=== PATIENT | male | born 1985 | race African-American/Black ===

== ENCOUNTER 2017-04-12 16:55 | Emergency (ER) | payer OTHER ==
[~2017-04-12 16:55] MED LIST: CLARITIN10 M3 PO; DELTASONE20 MG; DELTASONE20 MG PO; HYCET 7.5 MG-3473 ML PO; HYDROCODON-ACE1 EAC7 PO; LORTAB 5-325 M1 EACH PO; NO MEDICATIONS; TOBREX3.5 GM OU; TOBREX5 ML OU
[2017-04-12 17:47] LABS: INFLUENZA A NEG (NEG); INFLUENZA B NEG (NEG)
== END 2017-04-12 18:15 | disposition home or self-care (01) ==
LOC: SED 16:55
PROVIDERS: Nurse Practitioner Family
DX: J02.9 Acute pharyngitis, unspecified (principal); J01.90 Acute sinusitis, unspecified; F17.210 Nicotine dependence, cigarettes, uncomplicated
CPT/HCPCS: 87651; 87804; 99283

== ENCOUNTER 2017-04-28 19:17 | Emergency (ER) | payer OTHER ==
[~2017-04-28] VITALS: Ht 180.3 cm; Wt 74.8 kg
--- NOTE | ~2017-04-28 | CT71 ---
[facility] A [facility] RADIOLOGY TEXT RESULTS PATIENT: JARED BENITEZ LOCATION: SED : [birth year] UNIT #: [id number] AGE: [address]: Laura Hernandez PAC SEX: M ORDER DR: [id number] [address] [address] [id number] MR#: [id number] #: [id number] NAME: JARED BENITEZ : 1985 SEX: M STUDY DATE/TIME: 04/28/2017 20:11 UNIT: SED ROOM: STUDY DESCRIPTION: CT Head Wo Contrast Attending Physician: Laura Hernandez Pa-C Ordering Physician: Laura Hernandez Pa-C Primary Care Physician: No Primary Care Physician MEDICAL IMAGING REPORT This report is preliminary unless electronic signature is present. EXAM Head CT without contrast. HISTORY Headache with nausea, pain in the eyes and pressure for the past 2 days. TECHNIQUE Axial images were obtained without contrast. This CT exam was performed with one or more of the following radiation dose reduction techniques: automatic exposure control, adjustment of mA and/or kV according to patient size, and iterative reconstruction. FINDINGS Ventricular size and configuration are normal. There is no evidence of acute infarct or hemorrhage. There are no extraaxial fluid collections. No mass lesion or mass effect is seen. There are no skull fractures. IMPRESSION Normal noncontrast head CT. Dictated by... Asael Chapman M.D. THIS IS AN ELECTRONICALLY VERIFIED REPORT Asael Chapman M.D. at 04/30/2017 7:08 AM RADHAF/kendra TD: 04/29/2017 09:34 JOB #: [id number] [facility] A [facility] RADIOLOGY TEXT RESULTS PATIENT: JARED BENITEZ LOCATION: SED : [birth year] UNIT #: [id number] AGE: [address]: Laura Hernandez PAC SEX: M ORDER DR: MEDICAL IMAGING REPORT Page 1 of 1
[2017-04-28] MEDS ORDERED: ZYRTEC10 M1 PO (19:34)
== END 2017-04-28 21:46 | disposition home or self-care (01) ==
LOC: SED 19:17
DX: R51 Headache (principal)
CPT/HCPCS: 70450; 96372; 99284; J1885

== ENCOUNTER 2017-04-29 08:29 | Emergency (ER) | payer OTHER ==
[~2017-04-29 08:29] MED LIST changes: +ZYRTEC10 M1 PO
== END 2017-04-29 09:56 | disposition home or self-care (01) ==
LOC: SED 08:29
DX: G43.909 Migraine, unspecified, not intractable, without status migrainosus (principal); F17.210 Nicotine dependence, cigarettes, uncomplicated; Z79.899 Other long term (current) drug therapy
CPT/HCPCS: 99283